=== PATIENT | male | born 1985 | race Caucasian/White ===

== ENCOUNTER 2024-05-24 00:28 | Emergency (ER) | payer BC ==
[2024-05-24] MEDS: Take Home: traMADol 50 MG, 4 Tab Pack PO ONE (00:42)
== END 2024-05-24 00:47 | disposition home or self-care (01) ==
LOC: VM.ED 00:28
DX: R07.9 Chest pain, unspecified (principal)
CPT/HCPCS: 93005; 99284; A9270-GY